=== PATIENT | male | born 1995 | race Two or more races ===

== ENCOUNTER 2024-12-10 18:31 | Inpatient (IN) | payer OTHER ==
[~2024-12-10] VITALS: Ht 167.6 cm; Wt 75.0 kg
[2024-12-10 19:45] LABS: BASOPHILS % (AUTO) 0.6 % (0.0-2.0); EOSINOPHILS % (AUTO) 3.1 % (1.0-6.0); HEMATOCRIT 48.7 % (41-53); HEMOGLOBIN 16.2 g/dL (13.5-17.5); LYMPHOCYTES # (AUTO) 3.8 K/uL (1.0-4.8); LYMPHOCYTES % (AUTO) 32.6 % (22.0-44.0); MEAN CORPUSCULAR HEMOGLOBIN 29.1 pg (26.0-34.0); MEAN CORPUSCULAR HGB CONC 33.2 G/dL (31.0-37.0); MEAN CORPUSCULAR VOLUME 88 fL (80-100); MONOCYTES # (AUTO) 1.4 K/uL (0.1-1.0); MONOCYTES % (AUTO) 11.8 % (2.0-9.0); NEUTROPHILS % (AUTO) 51.9 % (40.0-70.0); PLATELET COUNT (AUTO) 269 K/uL (150-450); RED BLOOD CELL COUNT(AUTO) 5.57 MIL/uL (4.50-5.90); RED CELL DISTRIBUTION WIDTH 14.8 % (11.5-14.5); WHITE BLOOD COUNT (AUTO) 11.5 K/uL (4.5-11.0)
[2024-12-10 20:02] LABS: ANION GAP 16 mmol/L (8-16); CARBON DIOXIDE 25 mmol/L (22-29); CHLORIDE 102 mmol/L (98-107); CREATININE 0.84 mg/dL (0.60-1.30); GLOMERULAR FILTR. RATE CALC > 60 mL/min (>60); GLUCOSE,RANDOM 85 mg/dL (70-110); LIPASE 42 U/L (16-77); POTASSIUM 3.7 mmol/L (3.5-5.1); SODIUM SERUM 143 mmol/L (136-145); UREA NITROGEN, BLOOD 15 mg/dL (7-18)
[2024-12-10 20:06] LABS: ALBUMIN 4.6 g/dL (3.4-5.0); BILIRUBIN,DIRECT 0.3 mg/dL (0.00-0.20); BILIRUBIN,TOTAL 1.7 mg/dL (0.1-1.0); TOTAL PROTEIN, SERUM 8.7 g/dL (6.4-8.2)
[2024-12-10] MEDS ORDERED: SODIUM CHLORIDE 0.9% 100 ML ONE (21:40)
[2024-12-10] MEDS ORDERED: 0.9% SODIUM CHLORIDE 10 ML SYRINGE IVP ONE (21:40)
[2024-12-10] MEDS ORDERED: IOHEXOL 350 MG/ML 100 ML VIAL ONE (21:40)
[2024-12-10] MEDS: ONDANSETRON HCL 4 MG/2 ML VIAL IVP ONE (22:11)
[2024-12-10] MEDS: SODIUM CHLORIDE 0.9% 2,000 ML IV ONE (22:11)
[2024-12-10] MEDS: MORPHINE SULFATE 4 MG/ML SYRINGE IVP ONE (22:11)
[2024-12-10] MEDS ORDERED: ONDANSETRON HCL 4 MG/2 ML VIAL IVP PRN (22:15)
[2024-12-10] MEDS ORDERED: ACETAMINOPHEN 325 MG TABLET PO PRN (22:15)
[2024-12-10] MEDS: IOHEXOL 9 MG/ML 500 ML BOTTLE PO ONE (22:23)
[2024-12-10] MEDS: SODIUM CHLORIDE 0.9% 1,000 ML IV ONE (22:23)
[2024-12-10] MEDS ORDERED: MORPHINE SULFATE 2 MG/ML SYRINGE IVP PRN (22:30)
[2024-12-10 23:47] VITALS: BP 128/85; PULSE 91; RESP 18; TEMP 98.2; O2SAT 97
[2024-12-11 05:15] VITALS: BP 108/50; PULSE 71; RESP 18; TEMP 97.8; O2SAT 99
[2024-12-11 10:02] VITALS: BP 111/62; PULSE 88; RESP 18; TEMP 97.8; O2SAT 98
[2024-12-11] MEDS: PANTOPRAZOLE SODIUM 40 MG/VIAL IVP SCH (10:28)
== END 2024-12-11 20:15 | DRG 392 ==
LOC: EMS 18:31 → EDH 22:12 → 6S 23:52
PROVIDERS: ADMIT Internal Medicine; ATTEND Internal Medicine
DX: R10.84 Generalized abdominal pain (principal); Z79.899 Other long term (current) drug therapy
CPT/HCPCS: 74177; 80048; 80076; 83690; 85025; 96361; 96374; 96375; 99285; J2270; J2405; J2470; J7030; J7050; 36415-L1; 36415-TC